=== PATIENT | male | born 1960 | race Two or more races ===

== ENCOUNTER 2021-04-01 12:45 | Emergency (ER) | payer OTHER ==
[~2021-04-01] VITALS: Ht 180.3 cm; Wt 94.3 kg
[2021-04-01] MEDS ORDERED: KETOROLAC TROMETH 30 MG/ML 1ML VIAL IV ONE (13:00)
[2021-04-01] MEDS ORDERED: ONDANSETRON HCL 4 MG/2 ML VIAL IV ONE (13:00)
[2021-04-01] MEDS ORDERED: SODIUM CHLORIDE 0.9% 1,000 ML IVB ONE (13:00)
[2021-04-01 13:32] LABS: Urine Bacteria FEW /hpf (None Seen); Urine Blood 3+ /uL (Negative); Urine Mucus FEW (None Seen); Urine Specific Gravity 1.018 (1.001-1.035); Urine WBC 7 /hpf (0 - 3)
[2021-04-01 13:59] LABS: Basophils # (auto) 0.1 10 ^3/uL (0-0.2); Eosinophils # (auto) 0 10 ^3/uL (0-0.8); Eosinophils % (auto) 0.1 % (0.0-7.0); Lymphocytes # (auto) 1.3 10 ^3/uL (0.4-5.4); Mean Corpuscular Hgb Conc. 33.8 g/dL (32.0-36.0)
[2021-04-01 14:00] LABS: Basophils % (auto) 0.5 % (0.0-2.0); Hematocrit 52.7 % (41.0-53.0); Hemoglobin 17.8 g/dL (13.5-17.5); Mean Corpuscular Hemoglobin 32.2 pg (28.0-32.0); Mean Corpuscular Volume 95.2 fL (80.0-100.0); Monocytes # (auto) 1.4 10 ^3/uL (0-1.3); Monocytes % (auto) 8.8 % (0.0-12.0); Neutrophils % (auto) 82.6 % (37.0-80.0); Red Blood Cells 5.54 10^6/uL (4.5-5.90); Red Cell Distribution Width 13.4 % (11.8-14.3); White Blood Cell 15.7 10^3/uL (4.4-10.8)
[2021-04-01 14:14] LABS: Potassium 4.1 mmol/L (3.5-5.1)
[2021-04-01 14:20] LABS: Albumin 3.7 g/dL (3.4-5.0); BUN/Creatinine Ratio 12.3; Bilirubin, Total 0.8 mg/dL (0.2-1.0); Calcium 9.1 mg/dL (8.5-10.1); Total Protein 7.8 g/dL (6.4-8.2)
[2021-04-01 16:07] VITALS: BP 112/82
== END 2021-04-01 16:35 | disposition home or self-care (01) ==
LOC: ER 12:45
DX: N20.1 Calculus of ureter (principal); F12.10 Cannabis abuse, uncomplicated; Z87.891 Personal history of nicotine dependence; Z90.89 Acquired absence of other organs
CPT/HCPCS: 36415; 71046; 74176; 80053; 81001; 83690; 85025; 96361; 96374; 96375; 99285; J1885; J2405; J7030

== ENCOUNTER 2024-05-15 10:17 | Day surgery (SDC) | payer MEDICARE ==
[2024-05-09 15:18] LABS: Basophils # (auto) 0.1 10 ^3/uL (0-0.2); Basophils % (auto) 0.8 % (0.0-2.0); Eosinophils # (auto) 0.3 10 ^3/uL (0-0.8); Eosinophils % (auto) 4.1 % (0.0-7.0); Hematocrit 52.8 % (41.0-53.0); Hemoglobin 18.3 g/dL (13.5-17.5); Lymphocytes # (auto) 1.9 10 ^3/uL (0.4-5.4); Lymphocytes % (auto) 30.8 % (10.0-50.0); Mean Corpuscular Hemoglobin 32.9 pg (28.0-32.0); Mean Corpuscular Hgb Conc. 34.8 g/dL (32.0-36.0); Mean Corpuscular Volume 94.7 fL (80.0-100.0); Monocytes # (auto) 0.6 10 ^3/uL (0-1.3); Neutrophils # (auto) 3.4 10 ^3/uL (1.6-8.6); Neutrophils % (auto) 54.3 % (37.0-80.0); Nucleated Red Blood Cells % 0.1 %; Platelet Count (auto) 281 10^3/uL (140-450); Red Blood Cells 5.57 10^6/uL (4.5-5.90); Red Cell Distribution Width 13.2 % (11.8-14.3); White Blood Cell 6.3 10^3/uL (4.4-10.8)
[2024-05-09 15:35] LABS: Alanine Aminotransferase 20 U/L (7-40); Albumin 4.4 g/dL (3.2-4.8); Alkaline Phosphatase 76 U/L (46-116); Anion Gap 7 (5-15); Aspartate Aminotransferase 15 U/L (13-40); BUN/Creatinine Ratio 11.8 (10.0-20.0); Bilirubin, Total 0.5 mg/dL (0.2-1.0); Blood Urea Nitrogen 12 mg/dL (9-23); Calcium 9.8 mg/dL (8.7-10.4); Carbon Dioxide 23 mmol/L (20-31); Chloride 107 mmol/L (98-107); Glucose 91 mg/dL (74-106); Potassium 3.9 mmol/L (3.5-5.1); Sodium 137 mmol/L (136-145); Total Protein 7.2 g/dL (5.7-8.2)
[2024-05-09 15:45] LABS: INR 1.03 (0.9-1.15); Prothrombin Time 10.9 sec (9.3-11.8)
[~2024-05-15] VITALS: Ht 180.3 cm; Wt 90.7 kg
[2024-05-15] MEDS ORDERED: SODIUM CHLORIDE LOCK 10 ML ONE (11:18)
[2024-05-15 13:18] VITALS: PULSE 60; RESP 14; O2SAT 96
[2024-05-15] MEDS: fentaNYL CITRATE 100 MCG/2 ML VL ONE (13:20)
[2024-05-15] MEDS: MIDAZOLAM HCL 5 MG/ML-1ML VIAL ONE (13:20)
[2024-05-15 13:35] VITALS: PULSE 62; RESP 17; O2SAT 93
--- NOTE | 2024-05-15 13:38 | DVHNC2 ---
Procedure - Date of Procedure: 05/15/2024 Performed by: Dr Sarah Faustin Referring MD: Dr Garcia Procedure performed: 1. Esophagogastroduodenoscopy with biopsy under conscious sedation 2. Esophagogastroduodenoscopy with Bougie dilation Pre-procedure diagnosis: 1. Dyspahgia Postprocedure diagnosis: 1. Mild Gastritis, biopsies taken 2. Normal Esophagus biospies taken Indications for procedure: The patient is a 64 year old male who presents for EGD for dysphagia Medications used: 5 mg of Versed 50mcg of Fentanyl IV Details of the procedure: Informed consent was obtained after risks benefits and alternatives were discussed at length with the patient, patient gave consent to the procedure as well as a medication used for sedation. The patient was made aware of the risks of bleeding, infection, perforation, need for emergency surgery, and . Patient was placed in the left lateral decubitus position. An Olympus endoscope was inserted into the oropharynx advanced into the esop hagus, then into the duodenal bulb and duodenum. The scope was then withdrawn and mucosa carefully evaluated. The patient had mild gastritis, biopsies were taken. Retroflexion showed no abnromalities. The scope was withdrawn. The patient had a normal esopahgus with Z line at 40cm. Midesophageal biospies were taken to rule out EOE, and a 48F bougie dilator was used given the patients symptoms. The patient tolerated the procedure well. Impression: 1. Normal Esophagus 2.Mild Gastritis, biospies taken Dypshagia may be functional vs a motility disorder or esophageal spasm vs other RECS: 1. PPi daily 2. Follow up with biospies in GI Clinic as well as procedure results 3. Anti reflux precautions 4. Follow up with PCP 5.Consider a motility study and or Modified Barium Swallow and or imaging of the chest I would like to thank Dr Garcia for this referral SARAH FAUSTIN MD May 15, 2024 13:38
[2024-05-15 14:05] VITALS: BP 122/84; PULSE 64; RESP 14; O2SAT 96
== END 2024-05-15 14:30 | disposition home or self-care (01) ==
LOC: GI 10:17
PROVIDERS: ATTEND Specialist
DX: R13.10 Dysphagia, unspecified (principal); K29.50 Unspecified chronic gastritis without bleeding; K21.00 Gastro-esophageal reflux disease with esophagitis, without bleeding; J44.9 Chronic obstructive pulmonary disease, unspecified; Z90.89 Acquired absence of other organs; Z98.890 Other specified postprocedural states; Z87.891 Personal history of nicotine dependence
CPT/HCPCS: 36415; 43239; 43450; 80053; 85025; 85610; 85730; 88305; 88312; 88342; J2250; J3010; J7030

== ENCOUNTER → 2024-06-01 | Outpatient (CLI) | payer MEDICARE ==
[~2024-06-01] MED LIST: ALBUTEROL SULF 2.5 MG/0.5ML(0.5%) NEB SOLN ONE
--- NOTE | 2024-06-07 21:51 | DVHNC2 ---
Procedure - June 01, 2024 Pulmonary function test interpretation. 1. Mild obstructive ventilatory defect. 2. Significant bronchodilator response. FEV1 improved by 370 mL. 3. Total lung capacity is within normal limits, 99% of predicted (6.75 L). Diffusion capacity is above normal limits, 130% of predicted. RACHAEL HUITRON MD Jun 07, 2024 21:51
--- NOTE | 2024-06-07 21:52 | DVHNC2 ---
Procedure - June 01, 2024 6 minute walk test interpretation. Completed 6 minutes of ambulation. Expected heart rate achieved. No significant desaturation with exertion. No significant reduction in distance walk. RACHAEL HUITRON MD Jun 07, 2024 21:52
== END | disposition home or self-care (01) ==
LOC: RT 14:58
PROVIDERS: ATTEND Internal Medicine Pulmonary Disease
DX: J98.4 Other disorders of lung (principal); R06.00 Dyspnea, unspecified
CPT/HCPCS: 94060; 94618; 94727; 94729